=== PATIENT | male | born 1935 | race Caucasian/White ===

== ENCOUNTER → 2018-10-07 | Outpatient (CLI) | payer MEDICARE, BC ==
[2014-01-04 13:55] VITALS: BP 181/87
[~2018-10-07] MED LIST: CALCIUM600 MG PO; DOCUSATE100 MG PO; RITE AID ASPIRI81 M1 PO; SIMVASTATIN20 MG PO; VITAMIN B COMPL1 SGL PO
[2018-10-07 11:29] LABS: HEMATOCRIT 39.3 % (42.0-52.0); HEMOGLOBIN 12.9 g/dL (13.5-18.0); MEAN CELL VOLUME 92 fl (78-100); MEAN CORPUSCULAR HEMOGLOBIN 30 pg (27-31); MEAN CORPUSCULAR HGB CONC 33 g/dL (33-37); MEAN PLATELET VOLUME 10.4 fl (7.4-10.4); PLATELET COUNT 109 K/mm3 (130-400); RED BLOOD COUNT 4.29 M/mm3 (4.20-5.60); RED CELL DISTRIBUTION WIDTH 12.2 % (11.5-14.5); WHITE BLOOD COUNT 3.5 K/mm3 (4.8-10.8)
[2018-10-07 11:46] LABS: CALCIUM 9.6 mg/dL (8.8-10.0); POTASSIUM 4.3 mmol/L (3.5-5.1)
[2018-10-07 11:58] LABS: URINE APPEARANCE CLEAR; URINE COLOR YELLOW; URINE PROTEIN(semi-quant) TRACE mg/dL (NEGATIVE)
[2018-10-07 11:59] LABS: URINE BILIRUBIN NEGATIVE (NEGATIVE); URINE BLOOD 50 ery/uL (NEGATIVE); URINE GLUCOSE NEGATIVE (NEGATIVE); URINE KETONE 2+ (NEGATIVE); URINE LEUKOCYTE ESTERASE NEGATIVE (NEGATIVE); URINE NITRATE NEGATIVE (NEGATIVE); URINE UROBILINOGEN NORMAL (NORMAL)
[2018-10-07 12:01] LABS: LYMPHOCYTE 11 % (20-51); MONOCYTE 12 % (3-10); NEUTROPHILS 76 % (42-75)
== END ==
LOC: LAB 11:05
PROVIDERS: Physician Assistant Medical
DX: R42 Dizziness and giddiness (principal)

== ENCOUNTER → 2019-02-16 | Outpatient (CLI) | payer MEDICARE, BC ==
[2014-01-04 13:55] VITALS: BP 181/87
== END ==
LOC: LAB 10:59
DX: Z85.46 Personal history of malignant neoplasm of prostate (principal)

== ENCOUNTER 2019-02-23 10:00 | Outpatient (RCR) | payer MEDICARE, BC ==
[2014-01-04 13:55] VITALS: BP 181/87
== END 2019-02-23 10:30 | disposition home or self-care (01) ==
LOC: PT 10:00
DX: G20 Parkinson's disease (principal)

== ENCOUNTER → 2019-03-16 | Outpatient (CLI) | payer MEDICARE, BC ==
[2014-01-04 13:55] VITALS: BP 181/87
== END ==
LOC: RAD 07:41
DX: R09.89 Other specified symptoms and signs involving the circulatory and respiratory systems (principal)

== ENCOUNTER 2020-01-07 08:16 | Emergency (ER) | payer MEDICARE, BC ==
[~2020-01-07] VITALS: Ht 182.9 cm; Wt 70.6 kg
[2020-01-07 09:04] LABS: EOS # 0.1 (0.04-0.40); EOS % 2.1 % (0.0-4.0); HEMATOCRIT 39.6 % (42.0-52.0); HEMOGLOBIN 12.9 g/dL (13.5-18.0); LYMPH# 1.6 (1.50-4.00); MEAN CELL VOLUME 92 fl (78-100); MEAN CORPUSCULAR HEMOGLOBIN 30 pg (27-31); MEAN CORPUSCULAR HGB CONC 33 g/dL (33-37); MEAN PLATELET VOLUME 10.6 fl (7.4-10.4); MONO # 0.7 (0.20-0.80); NEU # 3.3 (1.40-6.50); PLATELET COUNT 137 K/mm3 (130-400); RED CELL DISTRIBUTION WIDTH 12.7 % (11.5-14.5); WHITE BLOOD COUNT 5.8 K/mm3 (4.8-10.8)
[2020-01-07 09:13] LABS: ALBUMIN 4.5 g/dL (3.4-4.8); POTASSIUM 3.6 mmol/L (3.5-5.1)
[2020-01-07 09:14] LABS: CALCIUM 9.6 mg/dL (8.3-10.5)
[2020-01-07 09:15] LABS: TOTAL PROTEIN 7.7 g/dL (6.2-8.1)
[2020-01-07 09:17] LABS: TOTAL BILIRUBIN 0.7 mg/dL (0.2-1.2)
[2020-01-07] MEDS ORDERED: LISINOPRIL40 MG PO (09:59)
[2020-01-07] MEDS ORDERED: SIMVASTATIN40 M1 PO (09:59)
[2020-01-07] MEDS ORDERED: DONEPEZIL HCL10 MG PO (09:59)
[2020-01-07 11:01] LABS: URINE APPEARANCE HAZY; URINE BILIRUBIN NEGATIVE (NEGATIVE); URINE BLOOD TRACE (NEGATIVE); URINE COLOR LT YELLOW; URINE GLUCOSE NEGATIVE (NEGATIVE); URINE KETONE 1+ (NEGATIVE); URINE LEUKOCYTE ESTERASE NEGATIVE (NEGATIVE); URINE NITRATE NEGATIVE (NEGATIVE); URINE PROTEIN(semi-quant) NEGATIVE (NEGATIVE); URINE UROBILINOGEN NORMAL (NORMAL)
[2020-01-07 14:44] VITALS: BP 108/71
== END 2020-01-07 14:44 | disposition short-term general hospital (02) ==
LOC: ED 08:16
PROVIDERS: Nurse Practitioner Primary Care
DX: J18.9 Pneumonia, unspecified organism (principal); I10 Essential (primary) hypertension; N39.0 Urinary tract infection, site not specified; I48.91 Unspecified atrial fibrillation; Z87.891 Personal history of nicotine dependence; Z95.9 Presence of cardiac and vascular implant and graft, unspecified; Z85.46 Personal history of malignant neoplasm of prostate
CPT/HCPCS: C9113; J1650; J1956; J2405; J2550; Q9967

== ENCOUNTER 2020-04-20 17:47 | Emergency (ER) | payer MEDICARE, BC ==
[~2020-04-20] VITALS: Wt 66.5 kg
[~2020-04-20 17:47] MED LIST changes: +ARICEPT5 M1; +ASPIRIN E.C. 8181 MG PO; +DONEPEZIL HCL10 MG PO; +LISINOPRIL40 MG PO; +NATURE'S BLEND500 M5; +SIMVASTATIN40 M1 PO
[2020-04-20] MEDS ORDERED: ASPIRIN E.C. 8181 MG PO (18:25)
[2020-04-20] MEDS ORDERED: COLACE100 M1 PO (18:27)
[2020-04-20] MEDS ORDERED: CALCIUM 500 + D1 TA2 PO (18:27)
[2020-04-20] MEDS ORDERED: DULCOLAX S10 MG/SUPP RC (18:28)
[2020-04-20] MEDS ORDERED: FLEET ENEM1 BOT/133 RC (18:30)
[2020-04-20] MEDS ORDERED: ZESTRIL10 M1 PO (18:32)
[2020-04-20] MEDS ORDERED: GOOD NEIGH1200 MG/15 PO (18:33)
[2020-04-20] MEDS ORDERED: OLANZAPINE5 M3 PO (18:34)
[2020-04-20] MEDS ORDERED: SIMVASTATIN40 M1 PO (18:35)
[2020-04-20] MEDS ORDERED: PAIN RELIEVER500 M2 PO (18:39)
[2020-04-20] MEDS ORDERED: VITAMIN D21250 MC1 PO (18:42)
[2020-04-20 20:40] VITALS: BP 125/75
== END 2020-04-20 20:40 | disposition home or self-care (01) ==
LOC: ED 17:47
DX: M25.552 Pain in left hip (principal); F03.90 Unspecified dementia, unspecified severity, without behavioral disturbance, psychotic disturbance, mood disturbance, and anxiety; G20 Parkinson's disease; R40.2410 Glasgow coma scale score 13-15, unspecified time; Z85.46 Personal history of malignant neoplasm of prostate; W19.XXXA Unspecified fall, initial encounter; Y92.129 Unspecified place in nursing home as the place of occurrence of the external cause